=== PATIENT | male | born 1990 | race Caucasian/White ===

== ENCOUNTER 2022-07-25 08:27 | Day surgery (SDC) | payer OTHER ==
[~2022-07-25] VITALS: Ht 180.3 cm; Wt 78.7 kg
[2022-07-25] VITALS (7 sets, daily range): BP systolic 119–137; BP diastolic 65–84; PULSE 56–76; TEMP 97.5–98.1
--- NOTE | 2022-07-25 12:20 | NUR ---
1125 RETURNS TO ROOM 7 PER CART. AWAKE, ALERT. RESP UNLABORED. DENIES PAIN OR URINARY URGENCY. VITAL SIGNS OBTAINED. CALL LIGHT AT SIDE. IN ROOM. 1140 TOLERATES PO CRACKERS, JELLO AND COFFE WITHOUT NAUSEA. 1155 AWAKE, ALERT. CONVERSES WITH . 1210 DISCHARGE INSTRUCTIONS REVIEWED. PATIENT AND VERBALIZE UNDERSTANDING. COPY PROVIDED IN DISCHARGE FOLDER. 1214 SITS ON EDGE OF CART DRESSES SELF THEN AMBULATES TO BATHROOM. VOIDS WITHOUT DIFFICULTY.
[2022-08-30] MEDS ORDERED: FLOMAX 0.40.4 MG/CAP PO (09:01)
[2022-08-30] MEDS ORDERED: ROXICODONE 55 MG/TAB PO (09:02)
[2022-08-30] MEDS ORDERED: MACROBID 1100 MG/CAP PO (09:02)
== END 2022-07-25 12:20 | disposition home or self-care (01) ==
LOC: SDCO 08:27
DX: Q62.10 Congenital occlusion of ureter, unspecified (principal); Q62.2 Congenital megaureter; N13.1 Hydronephrosis with ureteral stricture, not elsewhere classified
CPT/HCPCS: C1769; C2617; J0690; J1100; J2405; J2704; J3010; J7120; Q9967